=== PATIENT | female | born 1925 | race Caucasian/White ===

== ENCOUNTER → 2016-10-20 | Outpatient (CLI) | payer MEDICARE, BC ==
--- NOTE | 2016-10-20 09:37 | XCELERA REPORT ---
[address] [address] Lower Extremity Arterial Evaluation Name: INDIRA SIMS Age: 89 yrs Gender: Female : 1925 Patient Status: Outpatient Patient Location: Study Date: 10/20/2016 08:05 AM Procedure: A color flow and duplex scan of the lower extremity arteries was performed bilaterally with velocity and waveform anaylsis. Ankle brachial indicies performed. Reason For Study: PAIN Ordering Physician: TAVO LEACH Performed By: Rashard Hua Measurements and Calculations Right Left SMALL PRODUCTS II ASSEMBLER PSV -55.0 58.5 cm/sec Prox PFA PSV -77.6 -50.3 cm/sec Dist SFA PSV -65.5 -55.6 cm/sec Prox Pop A PSV 40.2 33.2 cm/sec Dist KERRY PSV 44.6 78.6 cm/sec Mid TECHNICAL SUPPORT AGENT PSV 10.3 cm/sec Dist TECHNICAL SUPPORT AGENT PSV 62.2 cm/sec Dist Cris A PSV 80.5 -61.3 cm/sec Mani Pedis PSV 75.5 35.2 cm/sec Right Side Arterial Evaluation Normal velocity, waveform and triphasic flow are present, from the Common Femoral artery to the Anterior Tibial artery. Biphasic in the Dorsalis Pedis. Occluded Posterior Tibial artery with no distal flow. The ankle-brachial index was not obtainable due to non compressibility. 0-19 % stenosis is noted at the Anterior Tibial artery. Occlusion in the Posterior Tibial. Left Side Arterial Evaluation Normal velocity, waveform and triphasic flow are present, from the Common Femoral artery to the infrageniculate vessels. Biphasic in the Dorsalis Pedis artery. The ankle-brachial index is 1.50. Non compressible Posterior Tibial artery. 0-19 % stenosis is noted at the Dorsalis Pedis artery. Interpretation Summary Moderate hemodynamically significant lesions in the right lower extremity only, on duplex imaging, at rest. Mild hemodynamically significant lesions in the left lower extremity only, on duplex imaging, at rest. : TAVO LEACH > Amor Geronimo
== END ==
LOC: SP 07:45
PROVIDERS: ATTEND Specialist
DX: M79.606 Pain in leg, unspecified (principal)
CPT/HCPCS: 93925

== ENCOUNTER → 2016-10-23 | Outpatient (CLI) | payer MEDICARE, BC ==
[2016-10-23 11:22] LABS: HEMATOCRIT 34.2 % (36.0-47.0); HEMOGLOBIN 11.6 g/dL (12.0-15.5); HGB HCT DIFFERENCE 0.6; MEAN CORPUSCULAR HEMOGLOBIN 38.3 pg (27.0-33.4); MEAN CORPUSCULAR VOLUME 113 fl (80-97); RED BLOOD COUNT 3.04 10^6/uL (3.72-5.28); WHITE BLOOD COUNT 5.6 10^3/uL (4.0-10.5)
[2016-10-23 11:29] LABS: APPEARANCE,URINE CLEAR; BILIRUBIN,URINE NEGATIVE (NEGATIVE); GLUCOSE, URINE NEGATIVE (NEGATIVE); KETONES,URINE NEGATIVE (NEGATIVE); LEUKOCYTE ESTERASE,URINE NEGATIVE (NEGATIVE); NITRITE,URINE NEGATIVE (NEGATIVE); PROTEIN,URINE NEGATIVE (NEGATIVE); URINE SPECIFIC GRAVITY 1.008; UROBILINOGEN,URINE NEGATIVE mg/dL (<2.0)
[2016-10-23 11:47] LABS: ALBUMIN 4.3 g/dL (3.5-5.0); ANION GAP 10 (5-19); BLOOD UREA NITROGEN 57 mg/dL (7-20); CALCIUM 10.1 mg/dL (8.4-10.2); CARBON DIOXIDE 38 mmol/L (22-30); CHLORIDE 90 mmol/L (98-107); CREATININE RESULT 1.46 mg/dL (0.52-1.25); GLUCOSE 86 mg/dL (75-110); POTASSIUM 3.4 mmol/L (3.6-5.0); SODIUM 137.8 mmol/L (137-145)
== END ==
LOC: OD 10:09
PROVIDERS: ATTEND Internal Medicine Nephrology
DX: I12.9 Hypertensive chronic kidney disease with stage 1 through stage 4 chronic kidney disease, or unspecified chronic kidney disease (principal); N18.9 Chronic kidney disease, unspecified; R60.9 Edema, unspecified
CPT/HCPCS: 36415; 80048; 81001; 82040; 85027

== ENCOUNTER → 2016-11-02 | Outpatient (CLI) | payer MEDICARE, BC | LOC: OD 10:14 | PROVIDERS: ATTEND Internal Medicine Nephrology | DX: E87.6 Hypokalemia (principal); I50.9 Heart failure, unspecified; E83.51 Hypocalcemia | CPT/HCPCS: 36415; 82607 ==

== ENCOUNTER → 2016-12-22 | Outpatient (CLI) | payer MEDICARE, BC ==
[2016-12-22 14:17] LABS: ALANINE AMINOTRANSFERASE 40 U/L (9-52); ALBUMIN 4.1 g/dL (3.5-5.0); ALKALINE PHOSPHATASE 216 U/L (38-126); ANION GAP 13 (5-19); ASPARTATE AMINO TRANSFERASE 47 U/L (14-36); BILIRUBIN,TOTAL 0.6 mg/dL (0.2-1.3); BLOOD UREA NITROGEN 46 mg/dL (7-20); CALCIUM 9.4 mg/dL (8.4-10.2); CARBON DIOXIDE 30 mmol/L (22-30); CHLORIDE 97 mmol/L (98-107); CREATININE RESULT 1.51 mg/dL (0.52-1.25); GLUCOSE 108 mg/dL (75-110); POTASSIUM 3.6 mmol/L (3.6-5.0)
== END ==
LOC: OD 13:19
PROVIDERS: ATTEND Internal Medicine
DX: I50.42 Chronic combined systolic (congestive) and diastolic (congestive) heart failure (principal); Z79.899 Other long term (current) drug therapy; I48.1 Persistent atrial fibrillation; E78.4 Other hyperlipidemia; I73.9 Peripheral vascular disease, unspecified; N19 Unspecified kidney failure; I34.0 Nonrheumatic mitral (valve) insufficiency; I35.1 Nonrheumatic aortic (valve) insufficiency; R06.09 Other forms of dyspnea; Z95.0 Presence of cardiac pacemaker; I27.2 Other secondary pulmonary hypertension; I36.1 Nonrheumatic tricuspid (valve) insufficiency; I48.0 Paroxysmal atrial fibrillation
CPT/HCPCS: 36415; 80053

== ENCOUNTER → 2017-01-28 | Outpatient (CLI) | payer MEDICARE, BC ==
[2017-01-28 11:23] LABS: ANION GAP 15 (5-19); BLOOD UREA NITROGEN 52 mg/dL (7-20); CALCIUM 9.8 mg/dL (8.4-10.2); CARBON DIOXIDE 29 mmol/L (22-30); CHLORIDE 98 mmol/L (98-107); CREATININE RESULT 1.41 mg/dL (0.52-1.25); GLUCOSE 77 mg/dL (75-110); POTASSIUM 3.2 mmol/L (3.6-5.0); SODIUM 141.7 mmol/L (137-145)
== END ==
LOC: OD 10:01
PROVIDERS: ATTEND Internal Medicine
DX: I50.42 Chronic combined systolic (congestive) and diastolic (congestive) heart failure (principal); I48.1 Persistent atrial fibrillation; Z95.0 Presence of cardiac pacemaker; E78.4 Other hyperlipidemia; I34.0 Nonrheumatic mitral (valve) insufficiency; I35.1 Nonrheumatic aortic (valve) insufficiency; I36.1 Nonrheumatic tricuspid (valve) insufficiency; N19 Unspecified kidney failure; R06.09 Other forms of dyspnea; I48.0 Paroxysmal atrial fibrillation; I73.9 Peripheral vascular disease, unspecified; Z79.899 Other long term (current) drug therapy
CPT/HCPCS: 36415; 80048

== ENCOUNTER → 2017-02-04 | Outpatient (CLI) | payer MEDICARE, BC ==
[2017-02-04 13:00] LABS: HEMATOCRIT 33.5 % (36.0-47.0); HEMOGLOBIN 11.5 g/dL (12.0-15.5); MEAN CORPUSCULAR HEMOGLOBIN 39.6 pg (27.0-33.4); MEAN CORPUSCULAR HGB CONC 34.4 g/dL (32.0-36.0); MEAN CORPUSCULAR VOLUME 115 fl (80-97); RED BLOOD COUNT 2.91 10^6/uL (3.72-5.28); RED CELL DISTRIBUTION WIDTH 14.3 % (11.5-14.0); WHITE BLOOD COUNT 4.7 10^3/uL (4.0-10.5)
[2017-02-04 13:25] LABS: ANION GAP 16 (5-19); BLOOD UREA NITROGEN 55 mg/dL (7-20); CALCIUM 9.5 mg/dL (8.4-10.2); CARBON DIOXIDE 26 mmol/L (22-30); CHLORIDE 96 mmol/L (98-107); CREATININE RESULT 1.32 mg/dL (0.52-1.25); GLUCOSE 83 mg/dL (75-110); POTASSIUM 3.4 mmol/L (3.6-5.0); SODIUM 137.7 mmol/L (137-145)
== END ==
LOC: OD 11:19
PROVIDERS: ATTEND Internal Medicine Nephrology
DX: N18.3 Chronic kidney disease, stage 3 (moderate) (principal); E87.6 Hypokalemia; I50.9 Heart failure, unspecified; E83.51 Hypocalcemia
CPT/HCPCS: 36415; 80048; 85027

== ENCOUNTER → 2017-02-10 | Outpatient (CLI) | payer MEDICARE, BC ==
[2017-02-10 10:23] LABS: ABSOLUTE EOSINOPHILS # (AUTO) 0.1 10^3/uL (0.0-0.6); ABSOLUTE LYMPHOCYTES (AUTO) 0.7 10^3/uL (0.5-4.7); ABSOLUTE MONOCYTES (AUTO) 0.5 10^3/uL (0.1-1.4); ABSOLUTE NEUT (AUTO) 3.1 10^3/uL (1.7-8.2); BASOPHILS % (AUTO) 1.1 % (0-2); EOSINOPHILS % (AUTO) 2.4 % (0-6); HEMATOCRIT 34.6 % (36.0-47.0); HEMOGLOBIN 11.9 g/dL (12.0-15.5); HGB HCT DIFFERENCE 1.1; LYMPHOCYTES % (AUTO) 14.9 % (13-45); MEAN CORPUSCULAR HEMOGLOBIN 39.2 pg (27.0-33.4); MEAN CORPUSCULAR HGB CONC 34.3 g/dL (32.0-36.0); MONOCYTES % (AUTO) 11.6 % (3-13); RED BLOOD COUNT 3.03 10^6/uL (3.72-5.28); RED CELL DISTRIBUTION WIDTH 14.6 % (11.5-14.0); WHITE BLOOD COUNT 4.4 10^3/uL (4.0-10.5)
[2017-02-10 10:40] LABS: MEAN CORPUSCULAR VOLUME 114 fl (80-97)
[2017-02-10 10:43] LABS: TOXIC GRANULATION 1+
[2017-02-10 10:45] LABS: ALANINE AMINOTRANSFERASE 46 U/L (9-52); ALBUMIN 4.3 g/dL (3.5-5.0); ALKALINE PHOSPHATASE 267 U/L (38-126); ANION GAP 14 (5-19); ASPARTATE AMINO TRANSFERASE 50 U/L (14-36); BILIRUBIN,DIRECT 0.4 mg/dL (0.0-0.4); BILIRUBIN,TOTAL 0.9 mg/dL (0.2-1.3); BLOOD UREA NITROGEN 56 mg/dL (7-20); CALCIUM 10.4 mg/dL (8.4-10.2); CARBON DIOXIDE 32 mmol/L (22-30); CHLORIDE 95 mmol/L (98-107); CHOLESTEROL 155.86 mg/dL (0-200); CREATININE RESULT 1.48 mg/dL (0.52-1.25); Direct HDL 49 mg/dL (>40); GLUCOSE 89 mg/dL (75-110); POTASSIUM 3.8 mmol/L (3.6-5.0); TOTAL PROTEIN 7.7 g/dL (6.3-8.2); TRIGLYCERIDES 65 mg/dL (<150)
[2017-02-10 10:57] LABS: DIRECT LDL 80 mg/dL (<100)
== END ==
LOC: OD 09:18
PROVIDERS: ATTEND Specialist
DX: I50.32 Chronic diastolic (congestive) heart failure (principal); I48.2 Chronic atrial fibrillation; Z95.0 Presence of cardiac pacemaker; I27.2 Other secondary pulmonary hypertension; E78.4 Other hyperlipidemia; E87.6 Hypokalemia; I27.89 Other specified pulmonary heart diseases; I34.0 Nonrheumatic mitral (valve) insufficiency; N18.3 Chronic kidney disease, stage 3 (moderate); I35.1 Nonrheumatic aortic (valve) insufficiency; I36.1 Nonrheumatic tricuspid (valve) insufficiency; I42.8 Other cardiomyopathies; I73.9 Peripheral vascular disease, unspecified; I95.1 Orthostatic hypotension; R06.09 Other forms of dyspnea; Z79.899 Other long term (current) drug therapy
CPT/HCPCS: 36415; 80048; 80061; 80076; 85025

== ENCOUNTER → 2017-04-27 | Outpatient (CLI) | payer MEDICARE, BC ==
[2017-04-27 13:13] LABS: HEMATOCRIT 36.1 % (36.0-47.0); HGB HCT DIFFERENCE -0.1; MEAN CORPUSCULAR HEMOGLOBIN 38.4 pg (27.0-33.4); MEAN CORPUSCULAR HGB CONC 33.3 g/dL (32.0-36.0); MEAN CORPUSCULAR VOLUME 115 fl (80-97); RED BLOOD COUNT 3.13 10^6/uL (3.72-5.28); RED CELL DISTRIBUTION WIDTH 17.8 % (11.5-14.0); WHITE BLOOD COUNT 4.8 10^3/uL (4.0-10.5)
[2017-04-27 13:32] LABS: ANION GAP 14 (5-19); BLOOD UREA NITROGEN 67 mg/dL (7-20); CALCIUM 9.7 mg/dL (8.4-10.2); CARBON DIOXIDE 30 mmol/L (22-30); CHLORIDE 95 mmol/L (98-107); CREATININE RESULT 1.46 mg/dL (0.52-1.25); GLUCOSE 89 mg/dL (75-110); MAGNESIUM 2.4 mg/dL (1.6-2.3); POTASSIUM 3.6 mmol/L (3.6-5.0); SODIUM 138.7 mmol/L (137-145)
== END ==
LOC: OD 11:38
PROVIDERS: ATTEND Physician Assistant Medical
DX: I12.9 Hypertensive chronic kidney disease with stage 1 through stage 4 chronic kidney disease, or unspecified chronic kidney disease (principal); N18.3 Chronic kidney disease, stage 3 (moderate); E87.6 Hypokalemia; M10.00 Idiopathic gout, unspecified site
CPT/HCPCS: 36415; 80048; 83735; 85027

== ENCOUNTER → 2017-06-07 | Outpatient (CLI) | payer MEDICARE, BC ==
[2017-06-07 12:41] LABS: ANION GAP 13 (5-19); BLOOD UREA NITROGEN 82 mg/dL (7-20); CALCIUM 10.1 mg/dL (8.4-10.2); CARBON DIOXIDE 24 mmol/L (22-30); CHLORIDE 101 mmol/L (98-107); CREATININE RESULT 1.98 mg/dL (0.52-1.25); GLUCOSE 93 mg/dL (75-110); POTASSIUM 3.9 mmol/L (3.6-5.0); SODIUM 137.8 mmol/L (137-145)
== END ==
LOC: OD 10:58
PROVIDERS: ATTEND Internal Medicine
DX: I50.32 Chronic diastolic (congestive) heart failure (principal); I48.1 Persistent atrial fibrillation; Z95.0 Presence of cardiac pacemaker; I27.2 Other secondary pulmonary hypertension; E78.4 Other hyperlipidemia; I34.0 Nonrheumatic mitral (valve) insufficiency; I35.1 Nonrheumatic aortic (valve) insufficiency; I36.1 Nonrheumatic tricuspid (valve) insufficiency; N19 Unspecified kidney failure; R06.09 Other forms of dyspnea; I27.89 Other specified pulmonary heart diseases; E87.6 Hypokalemia; Z79.899 Other long term (current) drug therapy
CPT/HCPCS: 36415; 80048

== ENCOUNTER → 2017-06-23 | Outpatient (CLI) | payer MEDICARE, BC ==
[2017-06-23 15:59] LABS: ANION GAP 16 (5-19); BLOOD UREA NITROGEN 73 mg/dL (7-20); CALCIUM 9.7 mg/dL (8.4-10.2); CARBON DIOXIDE 22 mmol/L (22-30); CHLORIDE 104 mmol/L (98-107); CREATININE RESULT 1.62 mg/dL (0.52-1.25); GLUCOSE 129 mg/dL (75-110); POTASSIUM 4.1 mmol/L (3.6-5.0); SODIUM 141.6 mmol/L (137-145)
== END ==
LOC: OD 14:21
PROVIDERS: ATTEND Internal Medicine Nephrology
DX: N18.3 Chronic kidney disease, stage 3 (moderate) (principal)
CPT/HCPCS: 36415; 80048

== ENCOUNTER → 2017-06-28 | Outpatient (CLI) | payer MEDICARE, BC ==
--- NOTE | 2017-06-28 12:52 | RADIOLOGY REPORT (SQ) ---
EXAM DESCRIPTION: CHEST PA/LATERAL COMPLETED DATE/TIME: 06/28/2017 12:41 pm REASON FOR STUDY: SHORTNESS OF BREATH COMPARISON: 09/27/2014 EXAM PARAMETERS: NUMBER OF VIEWS: two views TECHNIQUE: Digital Frontal and Lateral radiographic views of the chest acquired. RADIATION DOSE: NA LIMITATIONS: none FINDINGS: LUNGS AND PLEURA: The lungs are hyperexpanded. There is flattening of the diaphragms. MEDIASTINUM AND HILAR STRUCTURES: No masses or contour abnormalities. HEART AND VASCULAR STRUCTURES: The cardiac silhouette is enlarged. There is no krista CHF. BONES: No acute findings. HARDWARE: Pacemaker. OTHER: No other significant finding. IMPRESSION: Chronic lung changes and cardiac enlargement without CHF. TECHNICAL DOCUMENTATION: JOB ID: [id number] [employer]- All Rights Reserved
== END ==
LOC: OD 12:03
PROVIDERS: ATTEND Internal Medicine Nephrology
DX: R06.02 Shortness of breath (principal); N18.2 Chronic kidney disease, stage 2 (mild)
CPT/HCPCS: 71020

== ENCOUNTER 2017-07-01 16:52 | Inpatient (IN) | payer MEDICARE, BC ==
[2017-07-01 17:43] LABS: HEMATOCRIT 38.5 % (36.0-47.0); HEMOGLOBIN 13.1 g/dL (12.0-15.5); HGB HCT DIFFERENCE 0.8; MEAN CORPUSCULAR HEMOGLOBIN 40.7 pg (27.0-33.4); MEAN CORPUSCULAR HGB CONC 34.1 g/dL (32.0-36.0); MEAN CORPUSCULAR VOLUME 120 fl (80-97); RED BLOOD COUNT 3.22 10^6/uL (3.72-5.28); RED CELL DISTRIBUTION WIDTH 17.8 % (11.5-14.0); WHITE BLOOD COUNT 3.2 10^3/uL (4.0-10.5)
[2017-07-01 17:52] LABS: ALANINE AMINOTRANSFERASE 61 U/L (9-52); ALBUMIN 3.8 g/dL (3.5-5.0); ALKALINE PHOSPHATASE 292 U/L (38-126); ANION GAP 15 (5-19); ASPARTATE AMINO TRANSFERASE 88 U/L (14-36); BILIRUBIN,DIRECT 0.9 mg/dL (0.0-0.4); BILIRUBIN,TOTAL 1.5 mg/dL (0.2-1.3); BLOOD UREA NITROGEN 91 mg/dL (7-20); CALCIUM 9.4 mg/dL (8.4-10.2); CARBON DIOXIDE 18 mmol/L (22-30); CHLORIDE 105 mmol/L (98-107); CREATININE RESULT 2.21 mg/dL (0.52-1.25); GLUCOSE 70 mg/dL (75-110); LIPASE 324.1 U/L (23-300); POTASSIUM 4.8 mmol/L (3.6-5.0); SODIUM 137.6 mmol/L (137-145); TOTAL PROTEIN 6.9 g/dL (6.3-8.2)
[2017-07-01 17:58] LABS: PROTHROMBIN TIME 14.5 SEC (11.4-15.4)
--- NOTE | 2017-07-01 18:00 | RADIOLOGY REPORT (SQ) ---
EXAM DESCRIPTION: CHEST SINGLE VIEW COMPLETED DATE/TIME: 07/01/2017 5:45 pm REASON FOR STUDY: Hypoxia COMPARISON: 06/28/2017 EXAM PARAMETERS: NUMBER OF VIEWS: One view. TECHNIQUE: Single frontal radiographic view of the chest acquired. RADIATION DOSE: NA LIMITATIONS: None. FINDINGS: LUNGS AND PLEURA: Lung davila remain hyperexpanded but clear. There is some scarring in t he lung apices. MEDIASTINUM AND HILAR STRUCTURES: There calcified mediastinal nodes. HEART AND VASCULAR STRUCTURES: Heart is enlarged. No failure. BONES: No acute findings. HARDWARE: Battery pack and leads remain in place. OTHER: No other significant finding. IMPRESSION: Cardiomegaly and COPD. No acute consolidation or failure. TECHNICAL DOCUMENTATION: JOB ID: [id number]
--- NOTE | 2017-07-01 18:03 | ER Document Report ---
ED General - General Chief Complaint: Respiratory Distress Stated Complaint: ABDOMINAL PAIN Time Seen by Provider: 07/01/17 17:25 Notes: 89-year-old with history of CHF, chronic renal insufficiency, atrial fibrillation presents with hypoxia and right upper quadrant pain from the patient's primary care physician. Patient reported right upper quadrant pain to her daughter today though apparently has been having it for about a month now. There is not been any nausea vomiting or diarrhea. She was noted to be hypoxic at the clinic when she went to see her primary care physician. Sats were apparently in the 80s. She did receive 500 mL bolus according to EMS run sheet/communication. 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 No fevers. No other complaints. Daughter is present and helps give history as patient appears somewhat confused. Daughter is power of personal care worker reports the patient to be a DNR. TRAVEL OUTSIDE OF THE [place] IN LAST 30 DAYS: No - Related Data Allergies/Adverse Reactions: lactose [Lactose] Allergy (Unknown, Verified 02/09/14 17:48) propoxyphene HCl [From Darvon] Allergy (Unknown, Verified 02/09/14 17:48) soy [Soy] Allergy (Unknown, Verified 02/09/14 17:48) acetaminophen [From Vicodin] Adverse Reaction (Verified 07/16/14 08:51) hydrocodone bitartrate [From Vicodin] Adverse Reaction (Verified 07/16/14 08:51) morphine [Morphine] Adverse Reaction (Verified 07/16/14 08:51) Past Medical History - Social History Smoking Status: Smoker,Current Status Unk Family History: Reviewed & Not Pertinent - Past Medical History Cardiac Medical History: Reports: Hx Atrial Fibrillation, Hx Congestive Heart Failure, Hx Coronary Artery Disease, Hx Hypertension Denies: Hx Heart Murmur Pulmonary Medical History: Denies: Hx Tuberculosis Neurological Medical History: Reports: Hx Seizures Endocrine Medical History: Reports: Hx Hypothyroidism GI Medical History: Reports: Hx Gastroesophageal Reflux Disease, Hx Irritable Bowel Psychiatric Medical History: Denies: Hx Depression Past Surgical History: Reports: Hx Appendectomy, Hx Cardiac Surgery - pacemaker , Hx Hysterectomy, Hx Tonsillectomy, Hx Tubal Ligation. Denies: Hx Bowel Surgery, Hx Section, Hx Cholecystectomy, Hx Mastectomy - Immunizations Hx Diphtheria, Pertussis, Tetanus Vaccination: - unknown Hx Pneumococcal Vaccination: 07/18/09 Review of Systems - Review of Systems -: Yes All other systems reviewed and negative - Per the daughter, unobtainable from patient herself. Physical Exam - Vital signs Vitals: Temp 97.8 F 07/01/17 17:39 Interpretation: Hypoxic - Notes Notes: Physical Exam: GENERAL: VS as per nursing doc. thin, somewhat malnourished female in no acute distress. Resting comfortably with eyes closed HEAD: Atraumatic. EYES: Extraocular movements intact, sclera anicteric, no conjunctival injection or discharge. Minimal left conjunctival discharge ENT: Nares patent, oropharynx clear without exudates. Moist mucous membranes. NECK: Supple without lymphadenopathy LUNGS: Breath sounds worse to auscultation bilaterally and equal. Some very mild fine bibasilar rales. HEART: Normal S1S2. Regular rate and rhythm systolic murmur.. Equal peripheral pulses. ABDOMEN: Soft, no Arndt's sign but there is some right upper quadrant tenderness to palpation. EXTREMITIES: Normal range of motion. No calf tenderness. Negative Homans. 1+ edema lateral lower extremities. NEUROLOGICAL: Normal sensory and motor exams. No gross cerebellar abnormalities. PSYCH: Normal mood, normal affect. SKIN: Warm, dry, no cyanosis, no splinter hemorrhages. Cap refill < 2 sec. Course - Re-evaluation Re-evalutation: 07/01/17 19:03 Cusp with the daughter findings which included some increased LFTs which could be consistent with her right upper quadrant pain so a ultrasound will be performed. In and out cath is about to be performed. Chest x-ray shows cardiomegaly but no clear pulmonary edema. Kidney function is only slightly worse. Her CO2 has decreased. We will try to gently hydrate her. 07/01/17 21:[address] for further evaluation as her creatinine is high. Family was unaware of cholecystectomy noted on the US. - Vital Signs Vital signs: Temp Pulse Resp BP Pulse Ox 97.8 F 07/01/17 17:39 - Laboratory Result Diagrams: 07/01/17 17:25 07/01/17 17:25 Laboratory results interpreted by me: 07/01/17 07/01/17 07/01/17 17:25 17:25 19:01 WBC 3.2 L RBC 3.22 L MCV 120 H MCH 40.7 H RDW 17.8 H Plt Count 111 L Seg Neuts % (Manual) 83 H Band Neutrophils % 1 L Lymphocytes % (Manual) 11 L Abs Lymphs (Manual) 0.4 L Carbon Dioxide 18 L BUN 91 H Creatinine 2.21 H Est GFR ( Amer) 25 L Est GFR (Non-Af Amer) 21 L Glucose 70 L Total Bilirubin 1.5 H Direct Bilirubin 0.9 H AST 88 H ALT 61 H Alkaline Phosphatase 292 H Lipase 324.1 H Urine Ascorbic Acid 40 H - Diagnostic Test Radiology reviewed: Image reviewed - Small right effusion probable pneumonia. - EKG Interpretation by Az Rhythm: A.Fib - Rate 62, nonspecific IVCD. No clear ischemia but nonspecific ST abnormalities noted. Discharge - Discharge Clinical Impression: Right lower lobe pneumonia, Acute kidney injury, Hypoglycemia Condition: Fair Referrals: LATOSHA RIVERA MD [Primary Care Provider] - Follow up as needed
[2017-07-01 18:17] LABS: BAND NEUTROPHILS % (MANUAL) 1 % (3-5); BASOPHILS % (MANUAL) 0 % (0-2); EOSINOPHILS % (MANUAL) 0 % (0-6); LYMPHOCYTES % (MANUAL) 11 % (13-45); NUCLEATED RED BLOOD CELLS 3 /100 WBC (0); TOTAL CELLS COUNTED 100
[2017-07-01 18:19] LABS: TOXIC GRANULATION SLIGHT
[2017-07-01 18:20] LABS: ACANTHOCYTES 1+; ANISOCYTOSIS 1+; OVALOCYTES SLIGHT; POIKILOCYTOSIS 1+; POLYCHROMASIA 1+; SCHISTOCYTES SLIGHT; TARGET CELLS SLIGHT
[2017-07-01] MEDS ORDERED: NORMAL SALINE 500 ML IV ONE (19:04)
[2017-07-01] MEDS ORDERED: DEXTROSE 50%-WATER 25 GM/50 ML DISP.SYRIN IV ONE (19:07)
[2017-07-01 19:28] LABS: APPEARANCE,URINE CLEAR; BILIRUBIN,URINE NEGATIVE (NEGATIVE); GLUCOSE, URINE NEGATIVE (NEGATIVE); KETONES,URINE NEGATIVE (NEGATIVE); LEUKOCYTE ESTERASE,URINE NEGATIVE (NEGATIVE); NITRITE,URINE NEGATIVE (NEGATIVE); PROTEIN,URINE NEGATIVE (NEGATIVE); UROBILINOGEN,URINE NEGATIVE mg/dL (<2.0)
--- NOTE | 2017-07-01 20:12 | EKG REPORT ---
SEVERITY:- ABNORMAL ECG - ATRIAL FIBRILLATION NONSPECIFIC INTRAVENTRICULAR CONDUCTION DELAY ANTEROLATERAL INFARCT, OLD : Confirmed by: Judith Quevedo 01-Jul-2017 20:11:35
--- NOTE | 2017-07-01 20:47 | RADIOLOGY REPORT (SQ) ---
EXAM DESCRIPTION: U/S ABDOMEN LTD W/DOPPLER COMPLETED DATE/TIME: 07/01/2017 8:35 pm REASON FOR STUDY: RUQ Pain, elev LFT COMPARISON: None. TECHNIQUE: Dynamic and static grayscale images acquired of the abdomen and recorded on PACS. Additio nal selected color Doppler and spectral images recorded. LIMITATIONS: None. FINDINGS: PANCREAS: No masses. Visualized pancreatic duct normal caliber. LIVER: Liver contour slightly nodular. No focal masses. LIVER VASCULATURE: There is to and fro flow noted within the portal vein. GALLBLADDER: Prior cholecystectomy. ULTRASOUND-DETECTED LACEY'S SIGN: Negative. INTRAHEPATIC DUCTS AND COMMON DUCT: CBD and intrahepatic ducts normal caliber. No filling defects. INFERIOR VENA CAVA: Normal flow. AORTA: No aneurysm. RIGHT KIDNEY: The right kidney is small in size it measures 7.5 cm. Echogenicity is increased. No hydronephrosis. PERITONEAL AND RIGHT PLEURAL SPACE: There is ascites. OTHER: No other significant findings. IMPRESSION: 1. Ascites. To and fro of flow noted in the portal vein consistent with portal hyperte nsion. 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 2. Small echogenic right kidney consistent with medical renal disease. TECHNICAL DOCUMENTATION: JOB ID: [id number] [employer]- All Rights Reserved
[2017-07-01] MEDS ORDERED: ACETAMINOPHEN 325 MG TABLET PO ONE (21:37)
--- NOTE | 2017-07-01 22:01 | RADIOLOGY REPORT (SQ) ---
EXAM DESCRIPTION: CT CHEST WITHOUT COMPLETED DATE/TIME: 07/01/2017 9:51 pm REASON FOR STUDY: Hypoxia COMPARISON: 02/10/2014, chest x-ray done earlier the same day. TECHNIQUE: CT scan performed of the chest without intravenous contrast. Images reviewed with lung, soft tissue and bone windows. Reconstructed coronal and sagittal MPR images reviewed. All images st ored on PACS. All CT scanners at this facility use dose modulation, iterative reconstruction, and/or weight based d osing when appropriate to reduce radiation dose to as low as reasonably achievable (ALARA). [facility]: Dose Right [facility]: CareDose [facility]: Dose Right [facility]: Teradose 4D [facility]: Smart [employer] RADIATION DOSE: Up-to-date CT equipment and radiation dose reduction techniques were employed. CTDIv ol: 5.1 mGy. DLP: 334 mGy-cm. mGy. LIMITATIONS: No technical limitations. FINDINGS: LUNGS AND PLEURA: There are small bilateral pleural effusions. Minimal basilar atelectasi s there is a small nodular density in the right lower lobe probably representing focal airspace disea se is well pulmonary nodules thought to be less likely. There is hyperexpansion. HILAR AND MEDIASTINAL STRUCTURES: No identified masses or abnormal nodes. No obvious aneurysm. HEART AND VASCULAR STRUCTURES: Heart is enlarged. The aorta demonstrates atherosclerotic change. No pericardial effusion. UPPER ABDOMEN: No significant findings. Limited exam. THYROID AND OTHER SOFT TISSUES: No masses. No adenopathy. BONES: No significant finding. HARDWARE: Battery pack and leads are in place. OTHER: No other significant findings. IMPRESSION: Small pleural effusions. COPD. Focal airspace disease in the right base most likely at electasis or pneumonia. TECHNICAL DOCUMENTATION: JOB ID: [id number] Quality ID # [id number]: Final reports with documentation of one or more dose reduction techniques (e.g., Au tomated exposure control, adjustment of the mA and/or kV according to patient size, use of iterative reconstruction technique) 2010 [employer]- All Rights Reserved
--- NOTE | 2017-07-01 22:05 | RADIOLOGY REPORT (SQ) ---
EXAM DESCRIPTION: CT ABD/PELVIS NO ORAL OR IV COMPLETED DATE/TIME: 07/01/2017 9:51 pm REASON FOR STUDY: Upper abd pain COMPARISON: None. TECHNIQUE: CT scan of the abdomen and pelvis performed without intravenous or oral contrast. Images reviewed with lung, soft tissue, and bone windows. Reconstructed coronal and sagittal MPR images revi ewed. All images stored on PACS. All CT scanners at this facility use dose modulation, iterative reconstruction, and/or weight based d osing when appropriate to reduce radiation dose to as low as reasonably achievable (ALARA). [facility]: Dose Right [facility]: CareDose [facility]: Dose Right [facility]: Teradose 4D [facility]: [email or web address] RADIATION DOSE: mGy. LIMITATIONS: None. FINDINGS: LOWER CHEST: There are small pleural effusions. Heart is enlarged. NON-CONTRASTED LIVER, SPLEEN, ADRENALS: There is ascites. No focal hepatic or splenic lesions are de monstrated on this non contrasted study. The adrenal glands are poorly demonstrated. PANCREAS: Limited evaluation no gross masses. GALLBLADDER: Surgically absent. RIGHT KIDNEY AND URETER: The right kidney is low in position but shows no focal masses or hydronephro sis on this non contrasted study. No significant calcifications. No hydronephrosis or hydroureter . LEFT KIDNEY AND URETER: No suspicious masses. Assessment limited by lack of IV contrast. No signifi cant calcifications. No hydronephrosis or hydroureter. AORTA AND RETROPERITONEUM: The aorta demonstrates atherosclerotic change. It is ectatic. No aneurys mal dilatation. BOWEL AND PERITONEAL CAVITY: There is ascites. No evidence of obstruction. There is a large amount of stool throughout the colon. APPENDIX: Not visualized. PELVIS, BLADDER, AND ABDOMINAL WALL:There is free fluid in the pelvis. BONES: There is a compression fracture of L5 no retropulsion. Age is indeterminate. OTHER: No other significant finding. IMPRESSION: Diffuse ascites. Constipation. Small bilateral pleural effusions right greater than le ft. The study is limited by lack of oral and IV contrast. COMMENT: Quality ID # [id number]: Final reports with documentation of one or more dose reduction techniques (e.g., Automated exposure control, adjustment of the mA and/or kV according to patient size, use of iterative reconstruction technique) TECHNICAL DOCUMENTATION: JOB ID: [id number] [employer]- All Rights Reserved
[2017-07-01] MEDS ORDERED: CEFTRIAXONE 1 GM/D5W RTU 1 GM/50 ML RTUPB IV ONE (22:57)
[2017-07-01] MEDS ORDERED: AZITHROMYCIN INJ 500 MG VIAL IV ONE (22:58)
[2017-07-01 23:35] LABS: ARTERIAL BLOOD BASE EXCESS -7.3 mmol/L; ARTERIAL BLOOD O2 SATURATION 97.8 % (94-98)
[2017-07-02] MEDS ORDERED: NORMAL SALINE 500 ML IV ONE (00:10)
[2017-07-02] MEDS ORDERED: IPRATROPIUM/ALBUTEROL 0.5-2.5 MG/3 ML AMPUL NEB PRN (03:44)
[2017-07-02] MEDS ORDERED: FOLIC ACID INJ 5 MG/1 ML 10 ML VIAL IV SCH (03:45)
[2017-07-02] MEDS ORDERED: NORMAL SALINE 1000 ML 1,000 ML IV ONE (03:47)
--- NOTE | 2017-07-02 04:00 | PDOC H&P ---
History of Present Illness Admission Date/PCP: 07/02/17 00:58 LATOSHA RIVERA MD Patient complains of: Shortness of breath History of Present Illness: INDIRA SIMS is a 89 year old female with a past medical history of traumatic brain injury and subsequent seizures, paroxysmal atrial fibrillation without anticoagulation secondary to the former, coronary artery disease, dyslipidemia, peripheral vascular disease, osteoarthritis, renal insufficiency and congestive heart failure with unclear ejection fraction. She presents after 3 or 4 days of right-sided abdominal pain associated with shortness of breath no productive cough, constipation, nausea vomiting or diaphoresis. In the emergency room she is found to have likely right-sided pneumonia versus atelectasis, hypotensive, hypovolemic with metabolic alkalosis. VQ scan is ordered and pending she is referred to the hospitalist for admission of pneumonia with sepsis complicated by hypovolemia. Patient is a poor historian, daughter is at bedside who are unclear of her p.o. intake and output. Past Medical History Cardiac Medical History: Reports: Atrial Fibrillation, Congestive Heart Failure , Coronary Artery Disease, Hyperlipidema, Hypertension Denies: Heart Murmur Pulmonary Medical History: Denies: Tuberculosis Neurological Medical History: Reports: Seizures Endocrine Medical History: Reports: Hypothyroidism GI Medical History: Reports: Gastroesophageal Reflux Disease Psychiatric Medical History: Denies: Depression Past Surgical History Past Surgical History: Reports: Appendectomy, Hysterectomy, Tonsillectomy, Tubal Ligation Denies: Amputation, Section, Cholecystectomy, Mastectomy Social History Information Source: Relative, Emergency Med Personnel, [facility] Records Lives with: Family Smoking Status: Never Smoker Frequency of Alcohol Use: Rare Hx Recreational Drug Use: No Drugs: None Hx Prescription Drug Abuse: No - Advance Directive Resuscitation Status: Do Not Resuscitate Family History Family History: Arthritis Parental Family History Reviewed: Yes Children Family History Reviewed: Yes Sibling(s) Family History Reviewed.: Yes Medication/Allergy Home Medications: Allopurinol [Zyloprim 100 mg Tablet] 100 mg PO DAILY 12/03/11 Acetaminophen [Tylenol 325 mg Tablet] 650 mg PO QID 02/09/14 Estradiol [Vivelle-Dot] 0.1 mg TD TUFR 02/09/14 Latanoprost 1 drop OD DAILY 02/09/14 Digoxin [Lanoxin 0.125 mg Tablet] 0.125 mg PO DAILY #0 tablet 02/14/14 Levothyroxine Sodium 75 mcg PO DAILY 07/16/14 Metoprolol Tartrate [Lopressor 25 mg Tablet] 25 mg PO Q12 07/16/14 Acetaminophen with Codeine [Tylenol #3 Tablet] 1 tab PO Q4H PRN 07/29/14 Cephalexin Monohydrate [Keflex 500 mg Capsule] 500 mg PO BID #20 capsule Cephalexin [Cephalexin 250 MG Tablet] 1 tab PO TID 07/29/14 Docusate Sodium [Colace 100 mg Capsule] 1 cap PO DAILY 07/29/14 Furosemide [Lasix] 20 mg PO DAILY 07/29/14 Levetiracetam [Keppra 500 mg Tablet] 500 mg PO Q12 07/29/14 Polyethylene Glycol 3350 [Miralax Powder 17 gm/Packet] 1 packet PO DAILY PRN 09/30 Allergies/Adverse Reactions: lactose [Lactose] Allergy (Unknown, Verified 02/09/14 17:48) propoxyphene HCl [From Darvon] Allergy (Unknown, Verified 02/09/14 17:48) soy [Soy] Allergy (Unknown, Verified 02/09/14 17:48) acetaminophen [From Vicodin] Adverse Reaction (Verified 07/16/14 08:51) hydrocodone bitartrate [From Vicodin] Adverse Reaction (Verified 07/16/14 08:51) morphine [Morphine] Adverse Reaction (Verified 07/16/14 08:51) Review of Systems ROS unobtainable: Due to mental status Physical Exam Vital Signs: Temp Pulse Resp BP Pulse Ox 97.2 F 18 89/72 L 96 07/02/17 00:39 07/02/17 03:30 07/02/17 03:30 07/02/17 03:03 General appearance: PRESENT: disheveled, severe distress, thin, other - Temporal wasting and cachexia Head exam: PRESENT: atraumatic, normocephalic Eye exam: PRESENT: conjunctiva pink, EOMI, PERRLA. ABSENT: scleral icterus Mouth exam: PRESENT: dry mucosa, tongue midline Neck exam: ABSENT: carotid bruit, JVD, lymphadenopathy, thyromegaly Respiratory exam: PRESENT: accessory muscle use, decreased breath sounds, prolonged expiratory phas, retraction, tachypnea. ABSENT: rales, rhonchi, wheezes Cardiovascular exam: PRESENT: gallop, irregular rhythm Pulses: PRESENT: normal dorsalis pedis pul Vascular exam: PRESENT: normal capillary refill GI/Abdominal exam: PRESENT: diminished bowel sounds, distended, hypoactive bowel sounds, normal bowel sounds, soft, tenderness. ABSENT: guarding, mass, organolmegaly, rebound Rectal exam: PRESENT: deferred Extremities exam: PRESENT: full ROM, +1 edema - Chronic +1 left leg edema. ABSENT: calf tenderness, clubbing, pedal edema Neurological exam: PRESENT: altered, awake, oriented to person, CN II-XII grossly intact Psychiatric exam: PRESENT: appropriate affect, normal mood. ABSENT: homicidal ideation, suicidal ideation Skin exam: PRESENT: dry, intact, warm. ABSENT: cyanosis, rash Results Laboratory Results: 07/02/17 01:35 Troponin I 0.046 Impressions: Chest X-Ray 07/01/17 17:35 IMPRESSION: Cardiomegaly and COPD. No acute consolidation or failure. Abdomen Ultrasound 07/01/17 19:01 IMPRESSION: 1. Ascites. To and fro of flow noted in the portal vein consistent with portal hypertension. 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 2. Small echogenic right kidney consistent with medical renal disease. Abdomen/Pelvis CT 07/01/17 21:19 IMPRESSION: Diffuse ascites. Constipation. Small bilateral pleural effusions right greater than left. The study is limited by lack of oral and IV contrast. Chest CT 07/01/17 21:19 IMPRESSION: Small pleural effusions. COPD. Focal airspace disease in the right base most likely atelectasis or pneumonia. Assessment & Plan - Diagnosis (1) Right lower lobe pneumonia Is this a current diagnosis for this admission?: Yes Plan: Monitored bed pneumonia care set, incentive spirometry and supportive care as needed BiPAP (2) Hypovolemia dehydration Is this a current diagnosis for this admission?: Yes Plan: 2 L saline challenge given hypotension and severe metabolic alkalosis, reevaluate chemistry and urine output (3) Alkalosis, metabolic Is this a current diagnosis for this admission?: Yes Plan: Hold diuretic IV fluid challenge reevaluate chemistry (4) Acute kidney injury Is this a current diagnosis for this admission?: Yes Plan: Multifactorial chronic kidney disease and hypovolemia and sepsis. IV fluid challenge avoiding nephrotoxic meds and doses reevaluate chemistry. - Time Time Spent: 50 to 70 Minutes - Inpatient Certification Medical Necessity: Need Close Monitoring Due to Risk of Patient Decompensation
[2017-07-02 05:57] LABS: ANION GAP 11 (5-19); BLOOD UREA NITROGEN 82 mg/dL (7-20); CALCIUM 8.5 mg/dL (8.4-10.2); CARBON DIOXIDE 17 mmol/L (22-30); CHLORIDE 110 mmol/L (98-107); CREATINE KINASE 243 U/L (30-135); CREATININE RESULT 2.04 mg/dL (0.52-1.25); GLUCOSE 72 mg/dL (75-110); POTASSIUM 4.6 mmol/L (3.6-5.0); SODIUM 137.8 mmol/L (137-145)
[2017-07-02 06:10] LABS: CREATINE KINASE MB 17.6 ng/mL (<4.55); TROPONIN I 0.048 ng/mL
[2017-07-02 06:12] LABS: HEMATOCRIT 35.7 % (36.0-47.0); HEMOGLOBIN 12.1 g/dL (12.0-15.5); HGB HCT DIFFERENCE 0.6; MEAN CORPUSCULAR HEMOGLOBIN 40.8 pg (27.0-33.4); MEAN CORPUSCULAR VOLUME 120 fl (80-97); RED BLOOD COUNT 2.97 10^6/uL (3.72-5.28); RED CELL DISTRIBUTION WIDTH 17.6 % (11.5-14.0); WHITE BLOOD COUNT 3.2 10^3/uL (4.0-10.5)
[2017-07-02 06:35] LABS: BAND NEUTROPHILS % (MANUAL) 1 % (3-5); BASOPHILS % (MANUAL) 0 % (0-2); EOSINOPHILS % (MANUAL) 1 % (0-6); LYMPHOCYTES % (MANUAL) 11 % (13-45); NUCLEATED RED BLOOD CELLS 3 /100 WBC (0); TOTAL CELLS COUNTED 100
[2017-07-02 06:38] LABS: ANISOCYTOSIS 1+; BURR CELLS SLIGHT; OVALOCYTES SLIGHT; POIKILOCYTOSIS SLIGHT; TOXIC GRANULATION SLIGHT
[2017-07-02] MEDS: HEPARIN SOD (PORCINE) 5,000 UNIT/ML 1 ML SYRINGE SUBCUT SCH ×3 (06:52→22:22)
[2017-07-02 07:05] LABS: FOLATE > 20.00 ng/mL (>2.76)
[2017-07-02] MEDS ORDERED: FOLIC ACID 1 MG in NORMAL SALINE 50 ML IV ONE (11:30)
[2017-07-02] MEDS: CYANOCOBALAMIN (VITAMIN B-12) INJ 1000 MCG/1 ML VIAL IM SCH (11:37)
[2017-07-02] MEDS ORDERED: (PENDING PHARMACY ID) (Simethicone [Gas-X] 125 MG) PO PRN (11:40)
[2017-07-02] MEDS ORDERED: SIMETHICONE 80 MG TAB.CHEW PO PRN (11:47)
[2017-07-02] MEDS ORDERED: CARBOXYMETHYLCELLULOSE SOD 0.5% 0.4 ML DROPERETTE OU PRN (11:50)
[2017-07-02] MEDS ORDERED: FOLIC PO SCH (12:00)
[2017-07-02] MEDS ORDERED: MULTIVIT MIN PO SCH (12:00)
[2017-07-02] MEDS ORDERED: LEVETIRACETAM 500 MG TABLET PO ONE (12:00)
[2017-07-02] MEDS ORDERED: IRON PO SCH (12:00)
[2017-07-02] MEDS ORDERED: [UNRECOGNIZED DRUG - OTHER] PO SCH (12:00)
[2017-07-02] MEDS ORDERED: POTASSIUM CHLORIDE 10 MEQ TABLET.SA PO ONE (12:30)
[2017-07-02] MEDS ORDERED: LACTOBACILLUS ACIDOPHILUS 250 MG TAB PO ONE (12:30)
[2017-07-02] MEDS ORDERED: CALCIUM CARBONATE 250 MG/VITAMIN D3 125 UNIT TABLET PO ONE (12:30)
[2017-07-02] MEDS: LEVOFLOXACIN 750 MG/D5W RTU 750 MG/150 ML RTUPB IV SCH (12:52)
--- NOTE | 2017-07-02 13:05 | PDOC PROGRESS REPORT ---
Subjective Progress Note for:: 07/02/17 Subjective:: Patient is on a BiPAP and reports that she is feeling somewhat better. Her hypothermia has improved. Physical Exam Vital Signs: Temp Pulse Resp BP Pulse Ox 97.4 F 71 15 100/72 92 07/02/17 11:54 07/02/17 11:54 07/02/17 11:54 07/02/17 11:54 07/02/17 11:54 Intake & Output 07/01/17 07/02/17 07/03/17 06:59 06:59 06:59 Intake Total 240 Balance 240 Weight 42.5 kg General appearance: PRESENT: mild distress Eye exam: PRESENT: conjunctiva pink. ABSENT: scleral icterus Ear exam: PRESENT: normal external ear exam Mouth exam: PRESENT: moist, tongue midline Neck exam: ABSENT: JVD Respiratory exam: PRESENT: rhonchi - Coarse rhonchi bilaterally.. ABSENT: rales , wheezes Cardiovascular exam: PRESENT: RRR. ABSENT: diastolic murmur, rubs, systolic murmur GI/Abdominal exam: PRESENT: normal bowel sounds, soft. ABSENT: distended, guarding, mass, organolmegaly, rebound, tenderness Extremities exam: ABSENT: calf tenderness, clubbing, pedal edema Neurological exam: PRESENT: alert, awake, oriented to person, oriented to place , oriented to time, CN II-XII grossly intact. ABSENT: oriented to situation, motor sensory deficit Psychiatric exam: PRESENT: appropriate affect Skin exam: PRESENT: dry, intact, warm. ABSENT: cyanosis, rash Results Laboratory Results: 07/02/17 05:34 07/02/17 05:34 07/02/17 07/02/17 07/02/17 05:34 05:34 05:34 WBC 3.2 L RBC 2.97 L Hgb 12.1 Hct 35.7 L MCV 120 H MCH 40.8 H MCHC 34.0 RDW 17.6 H Plt Count 99 L Seg Neutrophils % Not Reportable Lymphocytes % Not Reportable Monocytes % Not Reportable Eosinophils % Not Reportable Basophils % Not Reportable Absolute Neutrophils Not Reportable Absolute Lymphocytes Not Reportable Absolute Monocytes Not Reportable Absolute Eosinophils Not Reportable Absolute Basophils Not Reportable Sodium 137.8 Potassium 4.6 Chloride 110 H Carbon Dioxide 17 L Anion Gap 11 BUN 82 H Creatinine 2.04 H Est GFR ( Amer) 28 L Est GFR (Non-Af Amer) 23 L Glucose 72 L Calcium 8.5 Vitamin B12 > 1000.0 H Folate > 20.00 07/02/17 07/02/17 05:34 05:34 Creatine Kinase 243 H CK-MB (CK-2) 17.60 H Troponin I 0.048 Impressions: Chest X-Ray 07/01/17 17:35 IMPRESSION: Cardiomegaly and COPD. No acute consolidation or failure. Abdomen Ultrasound 07/01/17 19:01 IMPRESSION: 1. Ascites. To and fro of flow noted in the portal vein consistent with portal hypertension. 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 2. Small echogenic right kidney consistent with medical renal disease. Abdomen/Pelvis CT 07/01/17 21:19 IMPRESSION: Diffuse ascites. Constipation. Small bilateral pleural effusions right greater than left. The study is limited by lack of oral and IV contrast. Chest CT 07/01/17 21:19 IMPRESSION: Small pleural effusions. COPD. Focal airspace disease in the right base most likely atelectasis or pneumonia. Assessment & Plan - Diagnosis (1) Acute respiratory failure with hypoxia Is this a current diagnosis for this admission?: Yes Plan: Secondary to pneumonia. The patient also has a history of congestive heart failure but actually appears to be slightly volume depleted. We will continue with the BiPAP. (2) Right lower lobe pneumonia Is this a current diagnosis for this admission?: Yes Plan: The patient has pneumonia and was given Rocephin and Zithromax last night. The patient's family reports that she has had difficulty with cephalosporins in the past. Because of this we will start on Levaquin. Continue with BiPAP and oxygen as needed. (3) Acute kidney injury Is this a current diagnosis for this admission?: Yes Plan: Patient has acute on chronic renal failure. Stage III. The patient has been given fluids overnight. We will have to be cautious given fluids given her history of congestive heart failure. (4) Alkalosis, metabolic Is this a current diagnosis for this admission?: Yes Plan: Most likely secondary to overdiuresis. (5) Dehydration Is this a current diagnosis for this admission?: Yes Plan: Improved with IV fluids. (6) Atrial fibrillation Is this a current diagnosis for this admission?: Yes Plan: Patient is rate controlled. (7) Coronary artery disease Is this a current diagnosis for this admission?: Yes Plan: Denies any chest pain. (8) Congestive heart failure Is this a current diagnosis for this admission?: Yes Plan: The patient is currently euvolemic. (9) Hyperlipidemia Is this a current diagnosis for this admission?: Yes (10) Hypertension Is this a current diagnosis for this admission?: Yes (11) Seizure disorder Is this a current diagnosis for this admission?: Yes Plan: Continue with Calixto (12) Gastroesophageal reflux disease Is this a current diagnosis for this admission?: Yes Plan: Asymptomatic - Time Time Spent with patient: 25-34 minutes - Inpatient Certification Medical Necessity: Need Close Monitoring Due to Risk of Patient Decompensation, Need for IV Antibiotics
[2017-07-02 15:48] LABS: CREATINE KINASE MB 15.3 ng/mL (<4.55); TROPONIN I 0.092 ng/mL
[2017-07-02] MEDS ORDERED: [UNRECOGNIZED DRUG - OTHER] PO SCH (16:00)
[2017-07-02] MEDS ORDERED: CHOLESTYRAMINE PO SCH (16:00)
--- NOTE | 2017-07-02 17:21 | EKG REPORT ---
SEVERITY:- ABNORMAL ECG - ATRIAL FIBRILLATION V PACED BEATS INCOMPLETE RIGHT BUNDLE BRANCH BLOCK ILBBB CONSIDER LEFT ARM RIGHT ARM LEAD REVERSAL : Confirmed by: Judith Quevedo 02-Jul-2017 17:20:41
[2017-07-02] MEDS ORDERED: CALCIUM CARB CIT PO SCH (18:00)
[2017-07-02] MEDS ORDERED: D3 PO SCH (18:00)
[2017-07-02] MEDS ORDERED: PHYTOSTROL PO SCH (18:00)
[2017-07-02] MEDS ORDERED: [UNRECOGNIZED DRUG - OTHER] PO SCH (18:00)
[2017-07-02] MEDS: CHOLESTYRAMINE/ASPARTAME 4 GM PACKET PO SCH (18:34)
[2017-07-02 21:30] LABS: CREATINE KINASE MB 13.1 ng/mL (<4.55)
[2017-07-02 21:47] LABS: TROPONIN I 0.13 ng/mL
[2017-07-02] MEDS ORDERED: METOPROLOL TARTRATE PF/INJ 5 MG/5 ML SDV IV ONE (21:55)
[2017-07-02] MEDS ORDERED: HEPARIN SOD (PORCINE) 5,000 UNIT/ML 1 ML SYRINGE SUBCUT SCH (22:00)
[2017-07-02] MEDS ORDERED: AZITHROMYCIN 500 MG in DEXTROSE 5%-WATER 250 ML IV SCH (22:00)
[2017-07-02] MEDS ORDERED: (PENDING PHARMACY ID) (Melatonin [Melatonin] 5 MG) PO SCH (22:00)
[2017-07-02] MEDS: LEVETIRACETAM 500 MG TABLET PO SCH (22:23)
[2017-07-02] MEDS: BIMATOPROST 0.01% OPH SOLN 2.5 ML/BOTTLE OU SCH (22:24)
[2017-07-02] MEDS: ASPIRIN 325 MG TABLET PO SCH (22:24)
[2017-07-02] MEDS: TRAZODONE HCL 50 MG TABLET PO SCH (22:24)
[2017-07-03] MEDS ORDERED: ACETAMINOPHEN 325 MG TABLET PO PRN (01:13)
[2017-07-03] MEDS ORDERED: MORPHINE SULFATE 10 MG/ML INJ IV PRN (01:54)
[2017-07-03] MEDS ORDERED: MORPHINE SULFATE 10 MG/ML INJ ONE ×2 (02:19→05:51)
[2017-07-03 05:17] LABS: HEMATOCRIT 34.4 % (36.0-47.0); HGB HCT DIFFERENCE 1.6; MEAN CORPUSCULAR HEMOGLOBIN 41.5 pg (27.0-33.4); MEAN CORPUSCULAR HGB CONC 34.9 g/dL (32.0-36.0); RED BLOOD COUNT 2.89 10^6/uL (3.72-5.28); WHITE BLOOD COUNT 3.2 10^3/uL (4.0-10.5)
[2017-07-03 05:28] LABS: ANION GAP 13 (5-19); BLOOD UREA NITROGEN 87 mg/dL (7-20); CARBON DIOXIDE 15 mmol/L (22-30); CHLORIDE 111 mmol/L (98-107); CREATININE RESULT 2.44 mg/dL (0.52-1.25); GLUCOSE 78 mg/dL (75-110)
[2017-07-03 05:37] LABS: POTASSIUM 5.7 mmol/L (3.6-5.0)
[2017-07-03 05:46] LABS: MEAN CORPUSCULAR VOLUME 119 fl (80-97)
[2017-07-03 06:00] LABS: BAND NEUTROPHILS % (MANUAL) 1 % (3-5); BASOPHILS % (MANUAL) 0 % (0-2); EOSINOPHILS % (MANUAL) 0 % (0-6); LYMPHOCYTES % (MANUAL) 3 % (13-45); TOTAL CELLS COUNTED 100
[2017-07-03] MEDS: HEPARIN SOD (PORCINE) 5,000 UNIT/ML 1 ML SYRINGE SUBCUT SCH ×3 (06:00→21:12)
[2017-07-03 06:03] LABS: TOXIC GRANULATION 1+
[2017-07-03 06:04] LABS: ACANTHOCYTES SLIGHT; ANISOCYTOSIS 1+; BURR CELLS 1+; HYPOCHROMASIA 1+; OVALOCYTES 1+; POIKILOCYTOSIS 2+; TARGET CELLS SLIGHT; TEAR DROP CELLS 1+
[2017-07-03 06:06] LABS: NUCLEATED RED BLOOD CELLS 12 /100 WBC (0)
[2017-07-03] MEDS: CHOLESTYRAMINE/ASPARTAME 4 GM PACKET PO SCH ×3 (07:48→15:50)
[2017-07-03] MEDS: LEVETIRACETAM 500 MG TABLET PO SCH ×2 (09:31→21:12)
[2017-07-03] MEDS ORDERED: LACTOBACILLUS ACIDOPHILUS 250 MG TAB PO SCH (10:00)
[2017-07-03] MEDS ORDERED: POTASSIUM CHLORIDE 10 MEQ TABLET.SA PO SCH (10:00)
[2017-07-03] MEDS ORDERED: FOLIC ACID 1 MG in NORMAL SALINE 50 ML IV SCH (10:00)
[2017-07-03] MEDS ORDERED: CALCIUM CARBONATE 250 MG/VITAMIN D3 125 UNIT TABLET PO SCH (10:00)
[2017-07-03] MEDS ORDERED: (PENDING PHARMACY ID) (Lactobacillus Acidophilus [Acidophilus] 1 EACH) PO SCH (10:00)
[2017-07-03] MEDS ORDERED: ASCORBIC ACID 500 MG TABLET PO SCH (10:00)
[2017-07-03] MEDS ORDERED: (PENDING PHARMACY ID) (Potassium Chloride [Potassium Chloride] 10 MEQ) PO SCH (10:00)
[2017-07-03] MEDS ORDERED: MULTIVITAMIN TABLET PO SCH ×2 (10:00)
[2017-07-03] MEDS ORDERED: ALLOPURINOL 100 MG TABLET PO SCH (10:00)
--- NOTE | 2017-07-03 10:14 | PDOC PROGRESS REPORT ---
Subjective Progress Note for:: 07/03/17 Subjective:: The patient is unresponsive. She was made comfort care last night because of worsening hypoxia. Physical Exam Vital Signs: Temp Pulse Resp BP Pulse Ox 97.8 F 95 34 H 87/64 L 79 L 07/03/17 07:32 07/03/17 07:32 07/03/17 08:43 07/03/17 07:32 07/03/17 07:32 Intake & Output 07/02/17 07/03/17 07/04/17 06:59 06:59 06:59 Intake Total 240 335 Output Total 140 Balance 240 195 Weight 42.5 kg 42.5 kg Neck exam: ABSENT: JVD Respiratory exam: PRESENT: wheezes. ABSENT: rales, rhonchi Cardiovascular exam: PRESENT: RRR, tachycardia. ABSENT: diastolic murmur, rubs , systolic murmur GI/Abdominal exam: PRESENT: normal bowel sounds, soft. ABSENT: distended, guarding, mass, organolmegaly, rebound, tenderness Neurological exam: PRESENT: other - Unresponsive Results Laboratory Results: 07/03/17 04:20 07/03/17 04:20 07/03/17 07/03/17 04:20 04:20 WBC 3.2 L RBC 2.89 L Hgb 12.0 Hct 34.4 L MCV 119 H MCH 41.5 H MCHC 34.9 RDW 17.0 H Plt Count 99 L Seg Neutrophils % Not Reportable Lymphocytes % Not Reportable Monocytes % Not Reportable Eosinophils % Not Reportable Basophils % Not Reportable Absolute Neutrophils Not Reportable Absolute Lymphocytes Not Reportable Absolute Monocytes Not Reportable Absolute Eosinophils Not Reportable Absolute Basophils Not Reportable Sodium 139.0 Potassium 5.7 H D Chloride 111 H Carbon Dioxide 15 L Anion Gap 13 BUN 87 H Creatinine 2.44 H Est GFR ( Amer) 23 L Est GFR (Non-Af Amer) 19 L Glucose 78 Calcium 9.0 07/02/17 07/02/17 07/02/17 05:34 05:34 13:39 Creatine Kinase 243 H 236 H CK-MB (CK-2) 17.60 H Troponin I 0.048 07/02/17 07/02/17 07/02/17 13:39 20:50 20:50 Creatine Kinase 305 H CK-MB (CK-2) 15.30 H 13.10 H Troponin I 0.092 0.130 Impressions: Chest X-Ray 07/01/17 17:35 IMPRESSION: Cardiomegaly and COPD. No acute consolidation or failure. Abdomen Ultrasound 07/01/17 19:01 IMPRESSION: 1. Ascites. To and fro of flow noted in the portal vein consistent with portal hypertension. 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 2. Small echogenic right kidney consistent with medical renal disease. Abdomen/Pelvis CT 07/01/17 21:19 IMPRESSION: Diffuse ascites. Constipation. Small bilateral pleural effusions right greater than left. The study is limited by lack of oral and IV contrast. Chest CT 07/01/17 21:19 IMPRESSION: Small pleural effusions. COPD. Focal airspace disease in the right base most likely atelectasis or pneumonia. Assessment & Plan - Diagnosis (1) Acute respiratory failure with hypoxia Is this a current diagnosis for this admission?: Yes Plan: Secondary to pneumonia. Patient has been made comfort care. We will removed from BiPAP once all of family is present. (2) Right lower lobe pneumonia Is this a current diagnosis for this admission?: Yes Plan: Comfort Care only. (3) Acute kidney injury Is this a current diagnosis for this admission?: Yes (4) Alkalosis, metabolic Is this a current diagnosis for this admission?: Yes (5) Dehydration Is this a current diagnosis for this admission?: Yes (6) Atrial fibrillation Is this a current diagnosis for this admission?: Yes (7) Coronary artery disease Is this a current diagnosis for this admission?: Yes (8) Congestive heart failure Is this a current diagnosis for this admission?: Yes (9) Hyperlipidemia Is this a current diagnosis for this admission?: Yes (10) Hypertension Is this a current diagnosis for this admission?: Yes (11) Seizure disorder Is this a current diagnosis for this admission?: Yes (12) Gastroesophageal reflux disease Is this a current diagnosis for this admission?: Yes - Time Time Spent with patient: 25-34 minutes - Inpatient Certification Medical Necessity: Need Close Monitoring Due to Risk of Patient Decompensation
[2017-07-03] MEDS: CYANOCOBALAMIN (VITAMIN B-12) INJ 1000 MCG/1 ML VIAL IM SCH (10:20)
[2017-07-03] MEDS: LEVOFLOXACIN 750 MG/D5W RTU 750 MG/150 ML RTUPB IV SCH (11:14)
[2017-07-03] MEDS ORDERED: LORAZEPAM INJ 2 MG/1 ML VIAL ONE (13:21)
[2017-07-03] MEDS ORDERED: LORAZEPAM INJ 2 MG/1 ML VIAL IV PRN (13:33)
[2017-07-03] MEDS: MORPHINE SULFATE 10 MG/ML INJ IV PRN ×2 (16:17→22:52)
[2017-07-03] MEDS: TRAZODONE HCL 50 MG TABLET PO SCH (21:12)
[2017-07-03] MEDS: BIMATOPROST 0.01% OPH SOLN 2.5 ML/BOTTLE OU SCH (21:12)
[2017-07-03] MEDS: ASPIRIN 325 MG TABLET PO SCH (21:12)
[2017-07-03 22:34] VITALS: BP 83/50
--- NOTE | 2017-07-04 13:04 | Death Summary ---
Summary Date : 07/04/17 Time of :: 02:48 Autopsy: No Resuscitation Status: Comfort Measures Only - Final Diagnosis (1) Acute respiratory failure with hypoxia Is this a current diagnosis for this admission?: Yes (2) Right lower lobe pneumonia Is this a current diagnosis for this admission?: Yes (3) Acute kidney injury Is this a current diagnosis for this admission?: Yes (4) Alkalosis, metabolic Is this a current diagnosis for this admission?: Yes (5) Dehydration Is this a current diagnosis for this admission?: Yes (6) Atrial fibrillation Is this a current diagnosis for this admission?: Yes (7) Coronary artery disease Is this a current diagnosis for this admission?: Yes (8) Congestive heart failure Is this a current diagnosis for this admission?: Yes (9) Hyperlipidemia Is this a current diagnosis for this admission?: Yes (10) Hypertension Is this a current diagnosis for this admission?: Yes (11) Seizure disorder Is this a current diagnosis for this admission?: Yes (12) Gastroesophageal reflux disease Is this a current diagnosis for this admission?: Yes Hospital Course:: 89-year-old female who was admitted with acute respiratory failure secondary to pneumonia. The patient was admitted and started on BiPAP as well as IV antibiotics. The patient had problems with worsening hypoxia in spite of the BiPAP and maximal oxygen. The patient was already a DO NOT RESUSCITATE and after discussion with her children they requested that she be made comfort care. She was taken off of the BiPAP and given morphine for pain and at 02 48. Cause of is pneumonia. Contributing factors are congestive heart failure.
[2017-07-05 14:51] LABS: PATH REVIEW PATHOLOGIST REVIEWED
== END 2017-07-04 04:23 | disposition expired | DRG 189 ==
LOC: ER 16:52 → UNDOADMIN 07-02 00:58 → EH 07-02 00:58 → 3N 07-02 03:55 → EH 07-02 03:55
PROVIDERS: ADMIT Internal Medicine; ATTEND Internal Medicine
PROC: 5A09457 Assistance with Respiratory Ventilation, 24-96 Consecutive Hours, Continuous Positive Airway Pressure (ICD-10-PCS; principal; 2017-07-02)
DX: J96.01 Acute respiratory failure with hypoxia (principal); J18.9 Pneumonia, unspecified organism; N17.9 Acute kidney failure, unspecified; E87.3 Alkalosis; Z66 Do not resuscitate; Z51.5 Encounter for palliative care; E86.0 Dehydration; I48.91 Unspecified atrial fibrillation; I11.0 Hypertensive heart disease with heart failure; I50.9 Heart failure, unspecified; G40.909 Epilepsy, unspecified, not intractable, without status epilepticus; I25.10 Atherosclerotic heart disease of native coronary artery without angina pectoris; K21.9 Gastro-esophageal reflux disease without esophagitis; E78.5 Hyperlipidemia, unspecified; M19.90 Unspecified osteoarthritis, unspecified site; I73.9 Peripheral vascular disease, unspecified; E03.9 Hypothyroidism, unspecified; Z87.820 Personal history of traumatic brain injury; Z90.710 Acquired absence of both cervix and uterus; Z79.899 Other long term (current) drug therapy; Z91.011 Allergy to milk products; Z88.8 Allergy status to other drugs, medicaments and biological substances; Z88.6 Allergy status to analgesic agent; Z88.5 Allergy status to narcotic agent
CPT/HCPCS: 36415; 36600; 51701; 71010; 71250; 74176; 76705; 80048; 80053; 81001; 82550; 82553; 82607; 82746; 82803; 82962; 83605; 83690; 83880; 84484; 85025; 85610; 87040; 87086; 93005; 93010; 93976; 94660; 96361; 96365; 96368; 96375; 99285; J0456; J0696; J1644; J1956; J2060; J2270; J3490; J7030; J7040